=== PATIENT | female | born 1995 | race African-American/Black ===

== ENCOUNTER 2020-05-06 10:09 | Outpatient (CLI) | payer OTHER, SELFPAY ==
--- NOTE | ~2020-05-06 | US_ITS ---
EXAMINATION: US OB <= 14 weeks fetus DATE: 05/06/2020 10:44 INDICATION: Second trimester dating TECHNIQUE: Real-time pelvic transabdominal and transvaginal ultrasound was performed. COMPARISON: None. FINDINGS: The uterus measures 15.4 x 8.6 x 11.5 cm. There is a 3.6 x 3.1 x 3.4 cm hypoechoic area in the anterior body of the uterus which has the appearance of an intramural fibroid. There is an intra uterine gestational sac. A yolk sac is identified. heart motion is identified measuring 144 wilfredo ts per minute (bpm) by M-mode Doppler. The right ovary is not visualized however no right adnexal abn ormality is seen. The left ovary measures 2.3 x 1.2 x 1.9 cm. There is no free fluid in the pelvis. The following biometric data were obtained: Biparietal diameter (BPD): 2.8 cm; head circumference (HC): 10.7 cm; abdominal circumference (AC): 8. 4 cm; femur length (FL): 1.9 cm. These measurements are concordant. Estimated weight is 117 g +/- 17 g, which correlates with the greater than 97th percentile when 11/04/2020 is used as estimated date of delivery. As single measurements, these parameters are each equal to the following estimated gestational ages w ith ranges of +/- 2 standard deviations: BPD: 15 weeks 1 days +/- 1 weeks 1 days. HC: 15 weeks 1 days +/- 1 weeks 1 days. AC: 14 weeks 5 days +/- 1 weeks 5 days. FL: 15 weeks 4 days +/- 1 weeks 3 days. estimated gestational age based solely on measurements from this exam is 15 weeks 1 days +/- 1 weeks 0 days. IMPRESSION: 1. Live intrauterine with an estimated gestational age of 15 weeks and 1 day(s) (+/-) 7 day (s) and an estimated delivery date of 10/27/2020. 2. Estimated weight is 117 g +/- 17 g, which correlates with the greater than 97th percentile w hen 11/04/2020 is used as estimated date of delivery. Reviewed, dictated and finalized at location A. IMPRESSION: 1. Live intrauterine with an estimated gestational age of 15 weeks an d 1 day(s) (+/-) 7 day(s) and an estimated delivery date of 10/27/2020. 2. Estimated weight is 117 g +/- 17 g, which correlates with the greater than 97th percentile when 11/04/2020 is used as estimated date of delivery.
== END 2020-05-06 10:10 | disposition home or self-care (01) ==
DX: Z34.91 Encounter for supervision of normal pregnancy, unspecified, first trimester (principal); Z3A.00 Weeks of gestation of pregnancy not specified
CPT/HCPCS: 76801